=== PATIENT | female | born 1990 | race Caucasian/White ===

== ENCOUNTER 2019-12-31 12:59 | Outpatient (CLI) | payer OTHER ==
[2019-12-31] MEDS ORDERED: TOPI100T8 PO (13:21)
[2019-12-31 14:02] LABS: BASOPHILS # (AUTO) 0.03 x10^3/uL (0-0.1); BASOPHILS % (AUTO) 0 % (0-1); EOSINOPHILS # (AUTO) 0.15 x10^3/uL (0-0.4); EOSINOPHILS % (AUTO) 2 % (1-7); LYMPHOCYTES # (AUTO) 2.09 x10^3/uL (1-3.4); LYMPHOCYTES % (AUTO) 29 % (22-44); MD NO; MEAN CORPUSCULAR HEMOGLOBIN 31.5 pg (27.0-34.8); MEAN CORPUSCULAR HGB CONC 33.7 g/dL (32.4-35.8); MEAN CORPUSCULAR VOLUME 93.7 fL (80-100); MEAN PLATELET VOLUME 7.7 fL (7.4-10.4); MONOCYTES # (AUTO) 0.56 x10^3/uL (0.2-0.8); MONOCYTES % (AUTO) 8 % (2-9); NEUTROPHILS # (AUTO) 4.45 x10^3/uL (1.8-6.8); NEUTROPHILS % (AUTO) 61 % (42-75); PLATELET COUNT 281 x10^3/uL (130-400); RED BLOOD COUNT 4.39 x10^6/uL (3.82-5.3); RED CELL DISTRIBUTION WIDTH 12.8 % (9.6-15.2)
[2019-12-31 14:14] LABS: INTERNATIONAL NORMALIZED RATIO 0.99 (0.93-1.1); PROTHROMBIN TIME 10.5 Seconds (9.6-11.5)
[2019-12-31 14:26] LABS: ALBUMIN 3.9 g/dL (3.4-5.0); ANION GAP 9 mmol/L (5-15); CALCIUM 8.7 mg/dL (8.5-10.1); CHLORIDE 111 mmol/L (98-107)
[2019-12-31 14:29] LABS: ALANINE AMINOTRANSFERASE 25 U/L (12-78); ALKALINE PHOSPHATASE 68 U/L (45-117); BILIRUBIN,TOTAL 0.4 mg/dL (0.2-1.0); CREATININE 1.16 mg/dL (0.55-1.02); TOTAL PROTEIN 7.7 g/dL (6.4-8.2)
== END 2019-12-31 23:59 | disposition home or self-care (01) ==
LOC: STAR 12:59
PROVIDERS: ATTEND Specialist
DX: Z01.818 Encounter for other preprocedural examination (principal); Z11.59 Encounter for screening for other viral diseases; R10.2 Pelvic and perineal pain; N83.201 Unspecified ovarian cyst, right side
CPT/HCPCS: 36415; 80053; 85025; 85610; 85730; 86304; U0001

== ENCOUNTER 2020-01-04 06:37 | Day surgery (SDC) | payer OTHER ==
[~2020-01-04] VITALS: Ht 177.8 cm; Wt 110.0 kg
[~2020-01-04 06:37] MED LIST: TOPI100T8 PO
[2020-01-04] MEDS ORDERED: BUPIVACAINE/PF-EPI 0.25% 1:200K ONE (06:44)
[2020-01-04] MEDS ORDERED: CHLORHEXIDINE 15 ML UDC MM STA (07:01)
[2020-01-04] MEDS ORDERED: CHLORHEXIDINE 15 ML UDC ONE (07:18)
[2020-01-04] MEDS ORDERED: LACTATED RINGERS 1,000 ML IV SCH (07:43)
[2020-01-04] MEDS ORDERED: FENTANYL PF 250 MCG/5ML ONE (08:36)
[2020-01-04] MEDS ORDERED: MIDAZOLAM 1 MG/ML, 2ML ONE (08:36)
[2020-01-04] MEDS ORDERED: PROPOFOL 10 MG/ML, 100ML IV ONE (08:50)
[2020-01-04] MEDS ORDERED: GLYCOPYRROLATE 0.2MG/1ML, 5ML ONE (08:50)
[2020-01-04] MEDS ORDERED: NEOSTIGMINE 1 MG/ML, 10ML ONE (08:50)
[2020-01-04] MEDS ORDERED: CEFAZOLIN PMX 1GM/50ML ONE (08:50)
[2020-01-04] MEDS ORDERED: DEXAMETHASONE 4 MG/ML, 1ML ONE (08:50)
[2020-01-04] MEDS ORDERED: FENTANYL PF 100 MCG/2ML IV PRN (09:30)
[2020-01-04] MEDS ORDERED: hydrALAzine 20 MG/ML, 1ML IV PRN (09:30)
[2020-01-04] MEDS ORDERED: OXYcodone 5 MG/5 ML ORAL.SOL UDC PO PRN (09:30)
[2020-01-04] MEDS ORDERED: LABETALOL 5MG/ML, 20ML IV PRN (09:30)
[2020-01-04] MEDS: HYDROmorphone 1 MG/ML, 1ML INJ IVPush PRN ×5 (10:15→11:05)
[2020-01-04] MEDS ORDERED: HYDROmorphone 1 MG/ML, 1ML INJ ONE ×2 (10:15→10:29)
[2020-01-04] MEDS: ONDANSETRON 2MG/ML, 2ML IVPush PRN ×2 (10:20→12:04)
[2020-01-04] MEDS ORDERED: ONDANSETRON 2MG/ML, 2ML ONE (10:20)
[2020-01-04] MEDS ORDERED: OXYcodone 5 MG/5 ML ORAL.SOL UDC ONE (10:38)
== END 2020-01-04 13:35 | disposition home or self-care (01) ==
LOC: OR 06:37
PROVIDERS: ATTEND Specialist
DX: R10.2 Pelvic and perineal pain (principal); D27.0 Benign neoplasm of right ovary; N73.6 Female pelvic peritoneal adhesions (postinfective); Z88.5 Allergy status to narcotic agent; Z79.899 Other long term (current) drug therapy; Z90.710 Acquired absence of both cervix and uterus; Z98.890 Other specified postprocedural states; Z80.41 Family history of malignant neoplasm of ovary; Z80.3 Family history of malignant neoplasm of breast
CPT/HCPCS: 36415; 50949; 58661; 86850; 86900; 86923; 88305; J0690; J1100; J1170; J2250; J2405; J2704; J2710; J3010; J7120